=== PATIENT | male | born 1990 | race American Indian/Alaskan Native ===

== ENCOUNTER 2019-12-22 22:34 | Emergency (ER) | payer SELFPAY ==
[2019-12-23 01:32] LABS: Bacteria,Urine 1+ /HPF (Negative); Bilirubin,Urine NEG (Negative); Blood,Urine NEG (Negative); Color,Urine Yellow (Yellow); Mucus,Urine FEW /HPF; Protein,Urine <15 mg/dL mg/dL (Negative); Urobilinogen,Urine < 2.0 mg/dL (<2.0)
[2019-12-23 01:45] LABS: Mean Corpuscular HGB Conc 35 % (32-34); Mean Corpuscular Volume 94 fl (84-94); Platelet Count 170 K/mm3 (140-440); Red Blood Count 4.59 M/mm3 (3.65-5.03); Red Cell Distribution Width 13.4 % (13.2-15.2)
[2019-12-23] MEDS ORDERED: MORPHINE 4 MG/1 ML INJ IV ONE (01:56)
[2019-12-23] MEDS ORDERED: SODIUM CHLORIDE 0.9% 1000 ML 1,000 ML IV ONE (01:56)
[2019-12-23 02:02] LABS: Alanine Aminotransferase 17 units/L (7-56); Albumin 4.4 g/dL (3.9-5); BUN/Creatinine Ratio 11; Blood Urea Nitrogen 11 mg/dL (9-20); Calcium 9.3 mg/dL (8.4-10.2); Hemolysis Index 9
--- NOTE | 2019-12-23 02:02 | Emergency Department Report ---
HPI - General Chief Complaint: Urogenital-Male Time Seen by Provider: 12/23/19 01:49 - HPI HPI: 29-year-old -Iranian male presents to the emergency department with a complaint of a 2-3 day history of some pain and swelling in the left groin and scrotum. Overall the patient says that this has been going on for the past few months intermittently but it has been worse over the past few days. He tried some Aleve for his symptoms with only some mild improvement in his discomfort. He went to [facility] today and was told that he may have a hernia. No past medical history. No problems with bowel or bladder, fever. ED Past Medical Hx - Past Medical History Previous Medical History?: No - Surgical History Past Surgical History?: No - Social History Smoking Status: Never Smoker Substance Use Type: None - Medications Home Medications: Home Medications Medication Instructions Recorded Confirmed Last Taken Type Ibuprofen [Motrin] 800 mg PO Q8H #30 tablet 05/18/15 Unknown Rx traMADoL [Ultram 50 MG tab] 50 mg PO Q6HR PRN #20 tablet 05/18/15 Unknown Rx ED Review of Systems ROS: Stated complaint: ABD PAIN/HERNIA Other details as noted in HPI Comment: All other systems reviewed and negative Constitutional: denies: chills, fever Gastrointestinal: denies: nausea, vomiting Genitourinary: testicular pain. denies: dysuria, discharge Skin: denies: rash, lesions Physical Exam - Physical Exam Vital Signs: Vital Signs 12/22/19 22:41 Temperature 98.0 F Pulse Rate 81 Respiratory 18 Rate Blood Pressure 118/77 O2 Sat by Pulse 94 Oximetry Physical Exam: GENERAL: The patient is well-developed well-nourished. HEENT: Normocephalic. Atraumatic. Patient has moist mucous membranes. EYES: Extraocular motions are intact. NECK: Supple. Trachea is midline. CHEST/LUNGS: Clear to auscultation. There is no respiratory distress noted. HEART/CARDIOVASCULAR: Regular. There is no tachycardia. T ABDOMEN: Abdomen is soft, nontender. Patient has normal bowel sounds. There is no abdominal distention. SKIN:Skin is warm and dry. . NEURO: The patient is awake, alert, and oriented. The patient is cooperative. The patient has no focal neurologic deficits. Normal speech. MUSCULOSKELETAL: There is no tenderness or deformity. There is no evidence of acute injury. : There is some left inguinal tenderness to palpation. There is some mild tenderness to palpation of the left side of the scrotum that has a fullness. The testicle does not appear tender to palpation. ED Course Vital Signs 12/22/19 22:41 Temperature 98.0 F Pulse Rate 81 Respiratory 18 Rate Blood Pressure 118/77 O2 Sat by Pulse 94 Oximetry ED Medical Decision Making - Lab Data Result diagrams: 12/23/19 01:02 12/23/19 01:02 - Radiology Data Radiology results: report reviewed Ultrasound scrotum INDICATION: Scrotal pain and swelling FINDINGS: The right testicle measures 4.3 cm in length. The left testicle measures 3.9 cm in length. There are small epididymal cysts bilaterally. Arterial flow is noted in both testicles. Hydroceles. There is a complex area in the left inguinal canal is not specific but may represent an inguinal hernia IMPRESSION: The testicles are unremarkable. There is arterial flow in both testicles. There is a possible left inguinal hernia. Signer Name: Ignacio Anderson MD CT abdomen pelvis w con INDICATION: Lower abd pain, groin pain, hernia. TECHNIQUE: All CT scans at this location are performed using the following dose modulation technique: Automated exposure control. Helical slices were obtained through the abdomen and pelvis following the administration of 100 cc of Isovue-300 COMPARISON: None available. FINDINGS: Abdomen: No acute abnormality is seen in the lower chest. The liver, spleen, pancreas, adrenal glands, and small bowel are unremarkable. There is no obstruction, inflammation, or free air. There is a left renal cyst. There is a subcentimeter hypodensity in the right kidney which is too small to characterize but also likely a cyst. There is bilateral nephrolithiasis. There is no hydronephrosis. There are no ureteral calculi. Pelvis: There is sigmoid diverticulosis. There is no CT evidence of diverticulitis. There are phleboliths. There is a fat-containing left inguinal hernia. On review of bone windows, no acute osseous abnormalities are seen. IMPRESSION: 1. There is a fat-containing left inguinal hernia. Signer Name: Ignacio Anderson MD - Medical Decision Making This patient presents with a few days of some left-sided groin and scrotal pain. On examination there is some reproducible tenderness to palpation to the left inguinal groin but no obvious swelling there. There is also some tenderness to palpation of the left side of the scrotum but there is some swelling or fullness within the scrotum. An ultrasound was done that does not show any testicular torsion and just shows some type of complex mass that could be a hernia. Samuel gautam's labs have been unremarkable including CBC, metabolic panel and urinalysis. A CT scan of the abdomen and pelvis with IV contrast was done that shows a fat filled left-sided inguinal hernia. The patient has been seen resting comfortably throughout most of his ED course and is currently asymp tomatic. All of the lab and imaging results were discussed with the patient. He will be given a referral for general surgery to follow up regarding the inguinal hernia, but he also understands to return to the emergency department immediately with any worsening of his symptoms or with any acute distress. - Differential Diagnosis strangulate/incarcerated hernia, testicular torsion, malignancy Critical Care Time: No Critical care attestation.: If time is entered above; I have spent that time in minutes in the direct care of this critically ill patient, excluding procedure time. ED Disposition Clinical Impression: Scrotal pain Inguinal hernia Qualifiers: Obstruction and gangrene presence: without obstruction or gangrene Laterality: unilateral Recurrence: not specified as recurrent Qualified Code(s): K40.90 - Unilateral inguinal hernia, without obstruction or gangrene, not specified as recurrent Groin pain Qualifiers: Laterality: left Qualified Code(s): R10.32 - Left lower quadrant pain Disposition: DC-01 TO HOME OR SELFCARE Is pt being admited?: No Condition: Stable Instructions: Inguinal Hernia (ED) Additional Instructions: I have given you some information regarding inguinal hernias. However, your hernia does not contain any bowel and currently contains fat. I am giving you a referral for a local general surgeon, Dr. Ramsey, to follow up regarding your hernia and establish care for possible elective outpatient surgery to repair this. Please return to the emergency department immediately with any worsening of your symptoms or with any acute distress. Referrals: MELQUIADES RAMSEY DO [Staff Physician] - 3-5 Days Time of Disposition: 04:24
[2019-12-23 03:09] LABS: RBC Morphology Normal; Total Cells Counted 100
[2019-12-23 03:20] VITALS: BP 117/74
--- NOTE | 2019-12-23 03:24 | Ultrasound Report ---
Ultrasound scrotum INDICATION: Scrotal pain and swelling FINDINGS: The right testicle measures 4.3 cm in length. The left testicle measures 3.9 cm in length. There are small epididymal cysts bilaterally. Arterial flow is noted in both testicles. Hydroceles. There is a complex area in the left inguinal canal is not specific but may represent an inguinal margo ia IMPRESSION: The testicles are unremarkable. There is arterial flow in both testicles. There is a possible left inguinal hernia. Signer Name: Ignacio Anderson MD Signed: 12/23/2019 3:20 AM Workstation Name: [id number]
--- NOTE | 2019-12-23 04:08 | Cat Scan Report ---
CT abdomen pelvis w con INDICATION: Lower abd pain, groin pain, hernia. TECHNIQUE: All CT scans at this location are performed using the following dose modulation technique: Automated exposure control. Helical slices were obtained through the abdomen and pelvis following the administr ation of 100 cc of Isovue-300 COMPARISON: None available. FINDINGS: Abdomen: No acute abnormality is seen in the lower chest. The liver, spleen, pancreas, adrenal glands , and small bowel are unremarkable. There is no obstruction, inflammation, or free air. There is a left renal cyst. There is a subcentimeter hypodensity in the right kidney which is too sma ll to characterize but also likely a cyst. There is bilateral nephrolithiasis. There is no hydronephr osis. There are no ureteral calculi. Pelvis: There is sigmoid diverticulosis. There is no CT evidence of diverticulitis. There are phlebol iths. There is a fat-containing left inguinal hernia. On review of bone windows, no acute osseous abnormalities are seen. IMPRESSION: 1. There is a fat-containing left inguinal hernia. Signer Name: Ignacio Anderson MD Signed: 12/23/2019 4:04 AM Workstation Name: [id number]
== END 2019-12-23 04:54 | disposition home or self-care (01) ==
LOC: ED 22:34
DX: K40.90 Unilateral inguinal hernia, without obstruction or gangrene, not specified as recurrent (principal)
CPT/HCPCS: 36415; 74177; 80053; 81001; 85007; 85025; 93975; 96374; 99284; J2270; J7030; Q9967

== ENCOUNTER 2020-01-30 06:01 | Day surgery (SDC) | payer OTHER ==
--- NOTE | 2020-01-29 13:03 | Short Stay Summary ---
Short Stay Documentation Date of service: 01/30/20 - History H&P: obtained from office - Allergies and Medications Current Medications: Allergies No Known Allergies Allergy (Unverified 05/18/15 21:54) Home Medications Medication Instructions Recorded Confirmed Last Taken Type Ibuprofen [Motrin] 800 mg PO Q8H #30 tablet 05/18/15 Unknown Rx traMADoL [Ultram 50 MG tab] 50 mg PO Q6HR PRN #20 tablet 05/18/15 Unknown Rx Active Medications Acetaminophen (Tylenol) 1,000 mg PO PREOP ADRIANA Stop: 01/30/20 16:00 Celecoxib (Celebrex) 200 mg PO PREOP NR Stop: 01/30/20 16:00 Gabapentin (Gabapentin) 900 mg PO PREOP ADRIANA Stop: 01/30/20 16:00 Sodium Chloride (Nacl 0.9% 1000 Ml) 1,000 mls @ 75 mls/hr IV DIRECT ADRIANA Cefazolin Sodium (Ancef/Sterile Water 2 Gm/20 Ml) 2 gm in 20 mls @ 80 mls/hr IV PREOP NR; Protocol Stop: 01/30/20 16:00 - Physical exam General appearance: no acute distress, well-nourished Integumentary: no rash HEENT: Atraumatic Lungs: Normal air movement Male Genitourinary: left inguinal hernia Neurological: Normal speech - Brief post op/procedure progress note Date of procedure: 01/30/20 (dictation:[id number]) Pre-op diagnosis: LIH Post-op diagnosis: same Procedure: robotic assisted lap LIH repair IVF 800cc EBL min UOP 150cc Anesthesia: GETA Findings: incarcerated omentum in LIH - indirect Surgeon: AALIYAH VILLAR Movie Editor: JAMIE LYNCH Estimated blood loss: minimal Pathology: none Condition: stable - Hospital course Hospital course: uneventful - Disposition Condition at discharge: Stable Disposition: DC-01 TO HOME OR SELFCARE Short Stay Discharge Plan Activity: advance as tolerated Diet: regular Wound: open to air, keep clean and dry, other (wear well fitted brief) Special Instructions: no heavy lifting Additional Instructions: Post Operative Instructions Activity: no heavy lifting for next 1 week. May shower tomorrow. Pat dry the wound or wounds. Keep incision sites clean and dry After surgery, start with a light diet. Consider starting with liquids. If you do well, you can advance to a regular diet as you feel comfortable. Apply an ice pack to the wound or wounds for 10-20 minutes at a time. Do this at least 4-5 times a day. You can do it more if he would like. Pain Medication Schedule for the first 2 days after surgery: Gabapentin 600mg twice a day Celebrex (celecoxib) 200mg twice a day Tylenol 500mg four times a day (every 6 hours) After the first 2 days, then take alternating doses of ibuprofen and Tylenol as needed for pain. Take 600 mg of ibuprofen every 6 hours as needed. Take 500 mg of Tylenol every 6 hours as needed. You should alternate these 2 medicines. Make sure you take the ibuprofen with food. It is very important that you use the prescription narcotic pain medicine (percocet) only for very severe pain. Do not take the narcotic medicine before you try using all the medications listed above. YOU WERE MEDICATED WITH 1 PERCOCET TAB BY MOUTH AT 1125 AM DO TAKE THE CELEBREX AND GABAPENTIN AND TYLENOL ORDERED. We will call you in a couple of days to see how youre doing. If you have any questions or concerns, always feel free to call the clinic ([phone]) at any time. Follow up with: PRIMARY MD CHARLENE [Primary Care Provider] - 7 Days AALIYAH VILLAR MD [Staff Physician] - 7 Days Forms: Outpatient Surgery DC Inst. Prescriptions: Celecoxib [celeBREX] 200 mg PO BID #4 capsule Gabapentin 600 mg PO BID #8 capsule oxyCODONE /ACETAMINOPHEN [Percocet 5/325] 1 tab PO Q6HR PRN #10 tablet PRN Reason: Pain , Severe (7-10)
[~2020-01-30 06:01] MED LIST: ACETAMINOPHEN 500 MG TAB PO SCH; CELECOXIB 200 MG CAP PO NR; GABAPENTIN 300 MG CAP PO SCH; SODIUM CHLORIDE 0.9% 1000 ML 1,000 ML IV SCH; ceFAZolin/Water 2 GM/20 ML 2 GM/20 ML SYRINGE IV NR
[2020-01-30] MEDS ORDERED: LIDOCAINE (1%) 10 MG/1 ML VIAL 20 ML MDV ONE (07:17)
[2020-01-30] MEDS ORDERED: BUPIVACAINE-EPINEPHRINE/PF 0.5%-1:200,000 (30 ML) VIAL INFILTRATI ONE ×2 (07:17→08:52)
[2020-01-30] MEDS ORDERED: HYDROmorphone 1 MG/1 ML INJ IV PRN (07:17)
[2020-01-30] MEDS ORDERED: ONDANSETRON 4 MG/2 ML INJ IV PRN (07:17)
--- NOTE | 2020-01-30 07:17 | Anesthesia Day of Surgery ---
Anesthesia Day of Surgery - Day of Surgery Patient Examined: Yes Patient H&P Reviewed: Yes Patient is NPO: Yes
--- NOTE | 2020-01-30 07:17 | Anesthesia Consultation ---
Anesthesia Consult and Med Hx - Airway Anesthetic Teeth Evaluation: Good ROM Head & Neck: Adequate Mental/Hyoid Distance: Adequate Mallampati Class: Class II Intubation Access Assessment: Good - Pulmonary Exam CTA: Yes - Cardiac Exam Cardiac Exam: RRR - Pre-Operative Health Status ASA Pre-Surgery Classification: ASA1 Proposed Anesthetic Plan: General - Central Nervous System Hx Psychiatric Problems: No - Other Systems Hx Alcohol Use: Yes ([facility]) Hx Substance Use: No Hx Cancer: No
[2020-01-30] MEDS ORDERED: LIDOCAINE MPF (2%) 20 MG/1 ML VIAL 5 ML ONE (07:27)
[2020-01-30] MEDS ORDERED: ROCURONIUM 50 MG/5 ML INJ IV ONE (07:27)
[2020-01-30] MEDS ORDERED: dexAMETHasone 20 MG/5 ML VIAL ONE (07:27)
[2020-01-30] MEDS ORDERED: propofoL 200 MG/20 ML VIAL IV ONE (07:27)
[2020-01-30] MEDS ORDERED: LIDOCAINE (1%) 10 MG/1 ML VIAL 20 ML MDV INFILTRATI ONE (08:52)
[2020-01-30] MEDS ORDERED: WATER FOR IRRIG STERILE 1,500 ML BOTTLE IR ONE (08:54)
[2020-01-30] MEDS ORDERED: KETOROLAC 30 MG/1 ML INJ ONE ×2 (09:41)
[2020-01-30] MEDS ORDERED: NEOSTIGMINE 10MG/10 ML INJ MDV ONE (09:43)
[2020-01-30] MEDS ORDERED: GLYCOPYRROLATE 0.4 MG/2 ML INJ ONE (09:43)
[2020-01-30] MEDS ORDERED: LACTATED RINGERS 1,000 ML ONE (10:03)
[2020-01-30] MEDS: fentaNYL 100 MCG/2 ML INJ IV PRN ×2 (11:02→11:14)
[2020-01-30] MEDS ORDERED: oxyCODONE /ACETAMINOPHEN 5-325MG TAB PO PRN (11:15)
[2020-01-30 11:55] VITALS: BP 129/74
--- NOTE | 2020-01-30 12:59 | Post Anesthesia Evaluation ---
- Post Anesthesia Evaluation Patient Participated: Yes Airway Patent: Yes Stable Respiratory Function: Yes Nausea/Vomiting: No Temp > 96.8F: Yes Pain Manageable: Yes Adequeate Hydration: Yes Anesthesia Complications: No
--- NOTE | 2020-01-30 15:07 | Operative Report ---
PREOPERATIVE DIAGNOSIS: Incarcerated left inguinal hernia. POSTOPERATIVE DIAGNOSIS: Incarcerated left inguinal hernia. PROCEDURE PERFORMED: Robotic-assisted laparoscopic left inguinal hernia repair. ATTENDING PHYSICIAN: Matt Sanders MD [facility] [employer] FIELD: Dr. Lopez. ANESTHESIA: General. ESTIMATED BLOOD LOSS: Minimal. FLUIDS: 800 mL. URINE OUTPUT: 150 mL. FINDINGS: Incarcerated omentum and indirect left inguinal hernia. SPECIMENS: None. IMPLANTS: Bard 3DMax mesh, left, large. DRAINS: None. DISPOSITION: Stable, transferred to Recovery Room. INDICATIONS: This is a 29-year-old male who presented to the office with complaints of a progressively enlarging left inguinal hernia causing significant pain. The patient is assessed to be a good candidate for robotic repair. Procedure, risks, benefits were explained to the patient. Risks include but were not limited to infection, bleeding, pain, injury to surrounding structures, possible need for open procedure, possible need for further procedures in the future. The patient understood and consented. OPERATIVE NOTE: The patient was brought to the operating room and placed on the table in supine position. After adequate general anesthesia was established, the patient was prepped and draped in usual sterile fashion. Antibiotics have been given. SCDs were in place. Pressure points were padded. Timeout was called. I began by applying gentle, but persistent pressure on the scrotum to try to reduce the mass. We had been unable to reduce it in the office completely. Once the patient was under general anesthesia, now with continued pressure, I was able to finally get the mass were reduced. I then placed a Veress needle in the left upper quadrant. I was able to insufflate in the first attempt. A 5 mm port was inserted using the Optiview technique. I entered the peritoneal cavity safely. Under direct guidance, we placed a 12-mm port at the superior aspect of the umbilicus. Two 8 mm ports were placed slightly above the horizontal line of the camera port. The mass that had been reduced was indeed omentum, a long tongue of it could be seen just under the left inguinal hernia opening. The right side had no evidence of inguinal hernia. The patient was placed in Trendelenburg position. Mesh was inserted with suture as well as gauze. Robot was docked. I proceeded to the console. I began by creating the peritoneal flap. I dissected out the pubic tubercle very nicely, had a very large dissection on the lateral aspect all the way down to the psoas muscle. The hernia sac itself was quite large that was going through the indirect space. It was densely adherent to the underlying structures. Extra time was required for this dissection; however, eventually we were able to separate the sac completely from the underlying cord structures. We clearly identified the vas deferens as well as the vessels. I pulled out the sac as much as possible, but as it had been there for quite a while and densely adherent, once we had gotten most of the sac out, I then divided it. We had a large space between the sac and the underlying cord structures. Therefore, I felt we were completely safe. We knew for sure there was nothing within the sac. Using electrocautery, we divided the sac. A small portion remained in the scrotum. There was no evidence of any active bleeding. We continued our dissection, making sure we had sac dissected back all the way to the point of the junction of the vas deferens and the medial umbilical ligament. We made sure in pulling the flap that it did not cause elevation of the cord structures. Once we had gotten to this point, I felt that we had a significant amount of dissection done. Mesh was then placed into position. It appeared to lay very nicely and then I passed the 2-0 V-Loc suture that we had already placed on the medial aspect of the mesh. I secured it to the pubic tubercle. Before taking it around the superior aspect to secure the mesh, we placed an Angiocath on a predetermined location on the left side to be used later for decompressing the scrotum. Under direct vision, Angiocath was inserted by Dr. Lopez. Once the catheter was in far enough, we then retracted the needle slightly, so as not to cause injury to the underlying structures. I then continued to secure the superior aspect of the mesh to the anterior abdominal wall, taking care to be mindful of where the location of the epigastric was. Once this was done, we then proceeded to close the peritoneal flap with a 3-0 V-Loc suture. I used the 3-0 also to close the defect that was left where we divided the peritoneal sac. I began the suture by closing this and then continuing the suture to close the peritoneal flap. The sac itself was pulled up and adherent to the peritoneal flap. I placed additional sutures as I was closing the flap to the sac itself to create a nice seal between the two. We had a very nice closure of the flap. There was no evidence of any bleeding. Everything looked very good. We then undocked the robot. I removed the sutures and gauze. Our counts were correct. Everything looked very good. We removed the 12-mm port, closed the fascia with a 2-0 PDS suture using the Johan-Christin fascial closure device. The rest of the ports were removed under direct vision. There was no bleeding. Abdomen was desufflated. Once we had complete desufflation, additional local was injected into all the sites. I then, at this point, compressed the left hemiscrotum to get the excess air out as we still had the Angiocath in place. Once this was decompressed as much as possible, I then removed the Angiocath catheter. Skin sites were closed with 4-0 Monocryl subcuticular stitches. Skin was cleaned and dried. Dermabond was placed. The patient tolerated the procedure well. There were no complications. All counts were correct at the end of the case. JOB# [id number] IVETH/TERESA
== END 2020-01-30 06:02 | disposition home or self-care (01) ==
LOC: OR 06:01
PROVIDERS: ATTEND Surgery
DX: K40.30 Unilateral inguinal hernia, with obstruction, without gangrene, not specified as recurrent (principal); Z79.899 Other long term (current) drug therapy; Z72.89 Other problems related to lifestyle; Z98.890 Other specified postprocedural states
CPT/HCPCS: 49650; C1781; J0690; J1100; J1170; J1885; J2405; J2704; J2710; J3010; J7030; J7120; S2900